=== PATIENT | female | born 1970 | race Caucasian/White ===

== ENCOUNTER 2016-07-24 16:14 | Emergency (ER) | payer OTHER ==
[~2016-07-24] VITALS: Ht 162.6 cm; Wt 123.8 kg
[~2016-07-24 16:14] MED LIST: A/B OTIC15 ML; ASPIRIN ADULT L81 M5 PO; KLOR-CON 88 MEQ PO; LASIX40 MG PO; METOPROLOL SUCC50 M2 PO; SIMVASTATIN40 M1 PO; WEL100 PO
[2016-07-24 17:03] VITALS: BP 137/80
== END 2016-07-24 17:40 | disposition home or self-care (01) ==
LOC: ED 16:14
DX: B34.9 Viral infection, unspecified (principal); Z98.51 Tubal ligation status
CPT/HCPCS: J7613; J7644

== ENCOUNTER 2016-08-15 06:48 | Emergency (ER) | payer OTHER ==
[2016-08-15 08:06] VITALS: BP 137/98
== END 2016-08-15 08:06 | disposition home or self-care (01) ==
LOC: ED 06:48
DX: J30.2 Other seasonal allergic rhinitis (principal); M79.1 Myalgia
CPT/HCPCS: Q0092

== ENCOUNTER 2016-09-16 12:03 | Emergency (ER) | payer OTHER ==
[2016-09-16 13:20] VITALS: BP 129/90
== END 2016-09-16 13:20 | disposition home or self-care (01) ==
LOC: ED 12:03
DX: L03.317 Cellulitis of buttock (principal); E66.01 Morbid (severe) obesity due to excess calories
CPT/HCPCS: J0696

== ENCOUNTER 2016-09-18 12:33 | Emergency (ER) | payer OTHER ==
[~2016-09-18] VITALS: Ht 165.1 cm; Wt 122.9 kg
[2016-09-18 14:42] VITALS: BP 128/72
== END 2016-09-18 14:42 | disposition home or self-care (01) ==
LOC: ED 12:33
DX: L02.231 Carbuncle of abdominal wall (principal); Z79.899 Other long term (current) drug therapy
CPT/HCPCS: 82962; 90715; J0295; J2001; J3010

== ENCOUNTER 2016-09-19 09:48 | Emergency (ER) | payer OTHER ==
[2016-09-19 09:54] VITALS: BP 140/99
== END 2016-09-19 11:20 | disposition home or self-care (01) ==
LOC: ED 09:48
DX: Z48.01 Encounter for change or removal of surgical wound dressing (principal)
CPT/HCPCS: J0696; J2001

== ENCOUNTER 2016-12-28 09:17 | Emergency (ER) | payer OTHER ==
[~2016-12-28] VITALS: Ht 165.1 cm; Wt 127.1 kg
[2016-12-28 10:26] LABS: BASOPHIL % 0.3 % (0-2); PLATELET COUNT 313 x10^3mcL (130-400); RED CELL DISTRIBUTION WIDTH 13.5 % (11.5-14.5)
[2016-12-28 10:30] LABS: CALCIUM 8.6 mg/dL (8.5-10.1); CARBON DIOXIDE 25.9 mmol/L (21-32); CHLORIDE SERUM 106 mmol/L (98-107); CREATININE SERUM 0.8 mg/dL (0.6-1.0); GFR1 > 60 mL/min; GLUCOSE SERUM 104 mg/dL (74-106); POTASSIUM SERUM 3.9 mmol/L (3.5-5.1); SODIUM SERUM 141 mmol/L (136-145)
[2016-12-28 10:34] LABS: ALKALINE PHOSPHATASE 105 U/L (46-116); ALT/SGPT 26 U/L (14-59); AST/SGOT 17 U/L (15-37); BILIRUBIN TOTAL 0.4 mg/dL (0.20-1.00); CHOLESTEROL 153 mg/dL (<200); CHOLESTEROL/HDL RATIO 3.5; HDL CHOLESTEROL 44 mg/dL (40-60); LIPASE 77 IU/L (73-393); TOTAL PROTEIN, SERUM 7.3 g/dL (6.4-8.2); TRIGLYCERIDES 62 mg/dL (<150)
[2016-12-28 10:36] LABS: ALBUMIN 3.3 g/dL (3.4-5.0)
[2016-12-28 10:40] LABS: microscopic required? NO
[2016-12-28 10:51] LABS: FREE T4 1.03 ng/dL (0.76-1.46); FREE THYROXINE INDEX 3.2 ug/dL (1.4-4.5); T3 TOTAL 1.2 ng/mL; T4(THYROXINE) 8.9 ug/dL (4.7-13.3)
[2016-12-28 11:00] LABS: UA SPECIFIC GRAVITY 1.015 (1.005-1.035); urine erythrocyte NEGATIVE (NEGATIVE)
[2016-12-28 13:26] VITALS: BP 121/83
== END 2016-12-28 13:26 | disposition home or self-care (01) ==
LOC: ED 09:17
PROVIDERS: Specialist
DX: M94.0 Chondrocostal junction syndrome [Tietze] (principal); E66.9 Obesity, unspecified
CPT/HCPCS: 83880; 84439; J1885; J7030

== ENCOUNTER 2019-02-01 12:26 | Emergency (ER) | payer SELFPAY ==
[~2019-02-01] VITALS: Ht 165.1 cm; Wt 117.0 kg
[2019-02-01 12:34] VITALS: Ht 165.1 cm; Wt 117.0 kg
[2019-02-01 13:01] LABS: BASOPHIL % 1.5 % (0-2); PLATELET COUNT 348 x10^3mcL (130-400); RED CELL DISTRIBUTION WIDTH 12.3 % (11.5-14.5)
[2019-02-01 13:09] LABS: CALCIUM 9.3 mg/dL (8.5-10.1); CARBON DIOXIDE 28.4 mmol/L (21-32); CHLORIDE SERUM 103 mmol/L (98-107); CREATININE SERUM 0.8 mg/dL (0.6-1.0); GFR1 > 60 mL/min; GLUCOSE SERUM 98 mg/dL (74-106); SODIUM SERUM 141 mmol/L (136-145)
[2019-02-01 13:13] LABS: ALBUMIN 4.1 g/dL (3.4-5.0); ALKALINE PHOSPHATASE 112 U/L (46-116); ALT/SGPT 21 U/L (14-59); AST/SGOT 13 U/L (15-37); BILIRUBIN TOTAL 0.66 mg/dL (0.20-1.00); LIPASE 56 IU/L (73-393)
[2019-02-01 13:16] LABS: TOTAL PROTEIN, SERUM 8.6 g/dL (6.4-8.2)
[2019-02-01 15:46] VITALS: BP 129/65
== END 2019-02-01 15:46 | disposition home or self-care (01) ==
LOC: ED 12:26
PROVIDERS: Emergency Medicine
DX: K80.50 Calculus of bile duct without cholangitis or cholecystitis without obstruction (principal); I10 Essential (primary) hypertension
CPT/HCPCS: 84439; G0480; J1885; J2270; J2405; J7030; Q0092